=== PATIENT | male | born 1995 | race African-American/Black ===

== ENCOUNTER 2022-04-29 10:42 | Emergency (ER) | payer SELFPAY ==
--- NOTE | ~2022-04-29 | CT_ITS ---
EXAMINATION: CT cervical spine wo con DATE: 04/29/2022 11:50 INDICATION: Head injury. TECHNIQUE: Computed tomography (CT) of the cervical spine was performed without intravenous contrast. Automated exposure control and iterative reconstruction technique were employed. The dose-length pro duct was 196.79 mGy-cm. COMPARISON: None FINDINGS: There is 13 degrees dextroscoliosis of cervical spine. There is kyphosis of cervical spine. Vertebral body heights and intervertebral disc heights are normal. There is multilevel mild facet manuel int osteoarthritis. No neural foraminal stenosis or central canal stenosis. IMPRESSION: 1. No fracture. Reviewed, dictated and finalized at location A. ESTATE SPECIALIST IMPRESSION: 1. No fracture.
--- NOTE | ~2022-04-29 | XR_ITS ---
EXAMINATION: XR chest 2V DATE: 04/29/2022 11:59 INDICATION: Seizure. Vomiting. TECHNIQUE: Frontal and lateral views of the chest were obtained. COMPARISON: None. FINDINGS: The chest demonstrates clear lungs without pneumonia, pleural effusion, or pneumothorax. Th e heart size is normal. IMPRESSION: 1. No acute cardiopulmonary disease. Reviewed, dictated and finalized at location A. ING DOCK HELPER
--- NOTE | ~2022-04-29 | CT_ITS ---
EXAMINATION: CT brain wo con DATE: 04/29/2022 11:49 INDICATION: Seizure. TECHNIQUE: Computed tomography (CT) of the head was performed without intravenous contrast. The mA wa s adjusted according to patient size. Iterative reconstruction technique was employed. The dose-lengt h product was 605.33 mGy-cm. COMPARISON: None FINDINGS: There is no intracranial hemorrhage, acute infarction, or abnormal intracranial mass lesion . The ventricles are normal in size. The paranasal sinuses are clear. The orbits are normal. The mast oid air cells are normal. IMPRESSION: 1. Normal brain. Reviewed, dictated and finalized at location A. DUPLICATOR IMPRESSION: 1. Normal brain.
[2022-04-29 10:43] VITALS: BP 115/68; PULSE 53; RESP 13; TEMP 36.2; O2SAT 100
--- NOTE | 2022-04-29 10:45 | ED.GENADULT ---
HPI - General Adult General Chief complaint: Seizure Stated complaint: Seizure Source: patient, family and EMS Mode of arrival: EMS Limitations: clinical condition History of Present Illness HPI narrative: Patient is a 26 y/o male who presents to the ED via EMS with report of seizure. History somewhat limited due to current postictal status. Patient's mother at bedside, assisted in providing information. Patient has history of epilepsy and takes Keppra 2000 mg twice daily. Mother reports patient had a witnessed seizure in the bathroom today. Lasted several seconds, less than 1 minute. Unsure if he fell and hit his head or not. Denied any urinary or bowel incontinence. Mother denies any recent complaints over the last couple of days. She is unsure patient's neurologist. She states patient has not missed any doses of his Keppra that she is aware of. Patient shook his head no when asked if missed any doses. Mother does report patient was drinking wine last night. Patient was actively vomiting upon EMS arrival, given 4mg Zofran en route to ED. Patient lives in [place]. Is currently in the area for a family . Review of Systems Review of Systems: ROS unobtainable: Yes unobtainable due to medical condition PMFSH Past Medical History Medical History (Updated 04/29/22 @ 12:53 by Viola Coyle PA-C) Epilepsy Surgical History Surgical History (Updated 04/29/22 @ 11:02 by Viola Coyle PA-C) No pertinent past surgical history Social History Social History (Updated 04/29/22 @ 11:02 by Viola Coyle PA-C) Smoking status: Never smoker Alcohol intake: current Exam Narrative: GENERAL: Somnolent, occasionally opening eyes, thin, non-toxic, in no acute distress. HEAD: Normocephalic, atraumatic. EYES: PERRL/EOMI, conjunctivae clear bilaterally. Resists opening of eyes. THROAT: Pharynx clear, no exudate. MMs moist. Small bite ariadne to R lateral inner lower lip. No tongue bite payan. Diffuse dental decay. NECK: Supple. No adenopathy, no masses. No meningeal signs. RESPIRATORY: Airway patent, respirations nonlabored. Clear to auscultation bilaterally, no rales, rhonchi, wheezing. CARDIOVASCULAR: Bradycardic with regular rhythm without murmurs, rubs, or gallops. Radial pulses 2+ and equal bilaterally. ABDOMINAL: Soft, nontender, nondistended, no hepatosplenomegaly. Normoactive BS. MUSCULOSKELETAL: No gross deformities. No edema. SKIN: Warm, dry, normal color. No rashes. NEURO: Somewhat somnolent, but responds to voice. Will open eyes and shake head yes and no in attempt to answer questions. Attempts to whisper some words. No ataxic movements. Course Vital Signs Vital signs: Vital Signs Temperature 97.1 F L 04/29/22 10:43 Pulse Rate 53 L 04/29/22 10:43 Respiratory Rate 13 04/29/22 10:43 Blood Pressure 115/68 04/29/22 10:43 Pulse Oximetry 100 04/29/22 10:43 Oxygen Delivery Room Air 04/29/22 10:43 Temperature 97.1 F L 04/29/22 10:43 Pulse Rate 74 04/29/22 16:09 Respiratory Rate 18 04/29/22 16:09 Blood Pressure 110/78 04/29/22 16:09 Pulse Oximetry 98 04/29/22 16:09 Oxygen Delivery Room Air 04/29/22 10:43 Medical Decision Making MDM Narrative Medical decision making narrative: Patient presented to ED with report of witnessed seizure. Patient w/ hx of epilepsy, on Keppra. Vitals stable upon arrival. Patient somewhat post-ictal but attempting to answer questions. Shaking head yes/no. Initial lactic acid elevated, consistent with likely seizure episode. Remainder of labs unremarkable. UA w/o signs of infection. UDS positive for cannabinoids, otherwise negative. EKG w/ nonspecific ST changes, likely normal variant. Trop negative. BG stable. CT brain negative. C-spine also negative. CXR w/o abnormality, no signs of aspiration. Patient became more alert and oriented throughout ED stay, consistent with resolution of post ictal state. Normal neurologic exam. Fol
[2022-04-29 10:49] VITALS: PULSE 68
--- NOTE | 2022-04-29 10:50 | ECG_ITS ---
Measurements Intervals [place] Rate: 46 P: 69 TN: 132 QRS: 77 QRSD: 102 T: 64 QT: 426 QTc: 373 Interpretive Statements SINUS BRADYCARDIA WITH SINUS ARRHYTHMIA ST ELEVATION IN ANTEROLAT/INF LEADS, PROBABLY EARLY REPOLARIZATION ABNORMAL ECG NO PREVIOUS ECG AVAILABLE FOR COMPARISON Electronically Signed On 04-29-2022 17:17:41 [employer] PLANT OPERATOR by Vitaly Henderson D.O.
--- NOTE | 2022-04-29 11:01 | PC.NURSE ---
Patient and family unable to confirm if patient has allergies at this time, will attempt again later to obtain information .
[2022-04-29] MEDS: levETIRAcetam 500MG/NACL 100ML 500 MG/100 ML BAG 400 MG IVPB (11:18)
[2022-04-29] MEDS: SODIUM CHLORIDE 0.9% IV 1,000 ML 999 ML IV CONT (11:18)
[2022-04-29] MEDS: levETIRAcetam 1000MG/NACL100ML 1,000 MG/100 ML BAG 400 MG IVPB (11:18)
[2022-04-29 11:31] LABS: Basophils Absolute Auto 0.1 K/mm3 (0.0-0.1); Basophils Percent Auto 1.1 % (0.2-1.2); Eosinophils Absolute Auto 0.1 K/mm3 (0-0.3); Eosinophils Percent Auto 1.3 % (0-4.4); Hematocrit 47.2 % (42.0-52.0); Immature Granulocyte Absolute 0.04 K/mm3 (0.00-0.031); Immature Granulocyte Percent A 0.9 % (0-0.5); Lymphocytes Absolute Auto 1.55 K/mm3 (0.9-3.2); Mean Corpuscular HGB Conc 33.9 g/dl (32-36); Mean Corpuscular Hemoglobin 32.5 pg (26-34); Mean Corpuscular Volume 95.7 fl (80-100); Mean Platelet Volume 8.8 fl (7.4-10.4); Monocytes Absolute Auto 0.4 K/mm3 (0.1-0.6); Monocytes Percent Auto 8.5 % (2.6-8.5); Neutrophils Absolute Auto 2.6 K/mm3 (1.3-6.7); Neutrophils Percent Auto 55.2 % (45.5-73.1); Platelet Count Result 216 k/mm3 (150-375); Red Blood Count 4.93 M/mm3 (4.6-6.20); Red Cell Distribution Width 12.3 % (11.5-14.5); White Blood Count 4.7 K/mm3 (4.5-10.0)
[2022-04-29 11:44] LABS: Alanine Aminotransferase 31 U/L (6-50); Albumin Level 4.6 g/dL (3.5-5.1); Alkaline Phosphatase 67 U/L (38-126); Anion Gap 13 mmol/L (8-16); Aspartate Amino Transferase 40 U/L (17-59); Bilirubin,Total 0.3 mg/dL (0.2-1.3); Blood Urea Nitrogen 17 mg/dL (9-20); Calcium 8.6 mg/dL (8.4-10.2); Carbon Dioxide 21 mmol/L (22-30); Chloride 106 mmol/L (98-107); Estimated CRCL calculation 84 ml/min; Estimated Glomerular Filt Rate > 60; Glucose 118 mg/dL (65-110); Lactic Acid Reflex 5.4 mmol/L (0.7-2.0); Potassium 4.6 mmol/L (3.4-5.0); Sodium 140 mmol/L (137-145)
[2022-04-29 11:45] LABS: Prothrombin Time 12.9 Seconds (11.1-14.7)
[2022-04-29 11:46] LABS: Partial Thromboplastin Time 25.4 SECONDS (22.3-36.8)
[2022-04-29 11:55] LABS: Troponin I < 0.012 ng/mL (0.000-0.034)
[2022-04-29 13:18] LABS: Appearance Urine Clear (Clear); Bilirubin Urine Negative (Negative); Blood Urine 1+ (Negative); Color Urine Yellow (Yellow); Glucose Urine UA Negative (Negative); Ketones Urine Negative (Negative); Leukocyte Esterase Ur Negative LEU/UL (Negative); Nitrate Urine Negative (Negative); Protein Urine 2+ mg/dL (Negative); Specific Grav Ur >= 1.030 (1.001-1.035); Urobilinogen Urine 0.2 mg/dL (<2.0); pH Urine 5.5 (5.0-9.0)
[2022-04-29 13:31] LABS: Amphetamine Screen Urine Negative (Negative); Barbiturate Screen Urine Negative (Negative); Benzodiazepines Screen Urine Negative (Negative); Cannabinoid Screen Urine Positive (Negative); Cocaine Screen Urine Negative (Negative); Methadone Screen Urine Negative (Negative); Opiate Screen Urine Negative (Negative); Phencyclidine Screen Urine Negative (Negative)
[2022-04-29 13:41] LABS: Mucus Urine Rare /lpf; RBC Urine 0-2 /hpf (0-2); Squamous Epithelial Cell Urine Rare /hpf (Few); WBC Urine 0-3 /hpf
[2022-04-29 13:56] LABS: Add Urine Microscopic? YES
[2022-04-29 14:29] LABS: Reflex Lactic Acid Yes or No Add Lactic
[2022-04-29 15:34] VITALS: BP 109/64; PULSE 68; RESP 16; O2SAT 99
[2022-04-29 16:09] VITALS: BP 110/78; PULSE 74; RESP 18; O2SAT 98
== END 2022-04-29 16:10 | disposition home or self-care (01) ==
PROVIDERS: Emergency Provider Physician Assistant
DX: G40.909 Epilepsy, unspecified, not intractable, without status epilepticus (principal); R00.1 Bradycardia, unspecified; R94.31 Abnormal electrocardiogram [ECG] [EKG]
CPT/HCPCS: 36415; 70450; 71046; 72125; 80053; 80307; 81001; 83605; 84484; 85025; 85610; 85730; 93005; 96361; 96365; 99284; J1953; J7030